=== PATIENT | female | born 2005 | race Caucasian/White ===

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

== ENCOUNTER 2023-04-19 12:04 | Emergency (ER) | payer BC, SELFPAY ==
--- NOTE | 2023-04-19 12:12 | ED.GENADULT ---
HPI - General Adult General Chief complaint: Upper Respiratory Infection Stated complaint: sore throat; headache; fever; Source: patient and RN notes reviewed History of Present Illness HPI narrative: 17-year-old female presents urgent care with complaints of a sore throat x2 days. Patient states she had a fever and chills last night. Reports bilateral ear pain as well. Denies any congestion, vomiting, shortness of breath, or diarrhea. Patient's boyfriend tested positive for strep throat this morning in clinic. Some parts of this dictation were generated by voice recognition software and may contain typographical and/or grammatical inaccuracies. Related Data Allergies Allergy/AdvReac Type Severity Reaction Status Date / Time No Known Allergies Allergy Verified 10/25/22 08:51 Review of Systems Review of Systems: Pertinent positives and pertinent negatives per HPI. [facility] Surgical History Surgical History (Updated 10/25/22 @ 09:10 by Lisa Edwards NP) No history of previous surgery Social History Social History (Updated 10/25/22 @ 08:49 by Lisa Edwards NP) Smoking status: Never smoker Alcohol intake: unknown Substance use type: does not use Living arrangements: with family Gender identity (if verbalized by the patient): Female Comments At the time of my signature, I reviewed and agree with the nursing past medical, surgical, social, and family history. There is no relevant family history pertinent to the patient complaint. Exam Narrative: GENERAL: This is a well-nourished, well-developed patient, in no apparent distress. HEAD: normocephalic, atraumatic. EYES: PERRL. Sclera clear/white. Vision is grossly intact. EARS: External ears normal, auditory canals clear and without drainage, TMs normal without perforation. Hearing grossly intact. NOSE: External nose normal with no obvious nasal discharge, nares without redness, no rhinorrhea. THROAT: Mucous membranes moist, posterior pharynx Erythemic. no exudate noted. NECK: Neck supple, non-tender without lymphadenopathy, masses or thyromegaly. CARDIOVASCULAR: Regular rate and rhythm without murmurs, gallops, or rubs. RESPIRATORY: Clear to auscultation. Breath sounds equal bilaterally. No wheezes, rales, or rhonchi. SKIN: warm, intact with no suspicious lesions or rash, good texture and turgor. NEURO: awake, alert, and oriented to person, place and time. There were no obvious focal neurologic abnormalities. EXTREMITIES: No clubbing, cyanosis, or edema. No joint tenderness, effusion, or edema noted. BACK: Nontender without deformity or crepitance. No flank tenderness. Course Course Level of Care: Express Care Visit Vital Signs Vital signs: Vital Signs Temperature 98.1 F 04/19/23 12:15 Pulse Rate 66 04/19/23 12:15 Respiratory Rate 16 04/19/23 12:15 Blood Pressure 117/66 04/19/23 12:15 Pulse Oximetry 100 04/19/23 12:15 Oxygen Delivery Room Air 04/19/23 12:15 Temperature 98.1 F 04/19/23 12:15 Pulse Rate 66 04/19/23 12:15 Respiratory Rate 16 04/19/23 12:15 Blood Pressure 117/66 04/19/23 12:15 Pulse Oximetry 100 04/19/23 12:15 Oxygen Delivery Room Air 04/19/23 12:15 reviewed Medical Decision Making MDM Narrative Medical decision making narrative: After 24 hours on antibiotics throw tooth brush away and start using a new one. Increase your Vitamin C. Do not share drinks. Take Motrin alternating with Tylenol for pain and/or fever alternating every 4 hours. Increase fluids, avoid caffeine. Take a probiotic daily or eat a low sugar yogurt while taking the antibiotic. Follow up with Primary provider if not getting better this week patient is being treated with antibiotics due to her boyfriend testing positive for strep throat this morning here in clinic. Differential Diagnosis Differential Diagnosis: strep throat, viral illness, URI Vital Signs Vital Signs: Vital Signs
[2023-04-19 12:15] VITALS: BP 117/66; PULSE 66; RESP 16; TEMP 36.7; O2SAT 100
== END 2023-04-19 12:44 | disposition home or self-care (01) ==
PROVIDERS: Emergency Provider Nurse Practitioner Family
DX: J02.9 Acute pharyngitis, unspecified (principal)
CPT/HCPCS: 87081; 87880; 99213; G0463

== ENCOUNTER 2024-08-02 14:13 | Emergency (ER) | payer BC, SELFPAY ==
[2024-08-02 14:40] VITALS: BP 120/76; PULSE 64; RESP 16; TEMP 37.4; O2SAT 99
[2024-08-02 14:42] LABS: EDUAAPPEAR Clear; EDUABILI Negative (Negative); EDUABLOOD 3+ (Negative); EDUACOLOR1 Pink; EDUAGLUCOSE Negative (Negative); EDUAKETONE Negative (Negative); EDUALEUKO 1+ (Negative); EDUANITRATE Negative (Negative); EDUAPH 6.5; EDUAPROTEIN 2+ (Negative); EDUASPGRAVITY 1.025
--- NOTE | 2024-08-02 14:47 | ED.FEMALEGU ---
HPI - Female Genitourinary General Chief complaint: Urogenital-Female Stated complaint: urinary issue Time Seen by Provider: 08/02/24 14:35 Source: patient Mode of arrival: ambulatory Limitations: no limitations History of Present Illness HPI Narrative: 19-year-old female presents with complaint of urgency, frequency, dysuria for 2 days. Afebrile. No abdominal or back pain. All systems reviewed and negative except as noted above. Related Data Allergies Allergy/AdvReac Type Severity Reaction Status Date / Time No Known Allergies Allergy Verified 08/02/24 14:14 Review of Systems Review of Systems: CONSTITUTIONAL: Denies fever, chills, or sweats. EYES: Denies visual changes, redness, or discharge. ENT: Denies rhinorrhea, congestion, sore throat, or otalgia. CARDIOVASCULAR: Denies chest pain, palpitations, or edema. RESPIRATORY: Denies cough or dyspnea. GASTROINTESTINAL: Denies abdominal pain, nausea, vomiting, or diarrhea. GENITOURINARY: Reports dysuria, frequency. Denies hematuria. SKIN: Denies rash or itching. MUSCULOSKELETAL: Denies back pain, joint pain, or myalgia. NEUROLOGIC: Denies headache, numbness, or weakness. PSYCHIATRIC: Denies anxiety or depression. All other systems reviewed are negative, except as documented in HPI. [facility] Surgical History Surgical History (Updated 10/25/22 @ 09:10 by Lisa Edwards NP) No history of previous surgery Social History Social History (Updated 10/25/22 @ 08:49 by Lisa Edwards NP) Smoking status: Never smoker Alcohol intake: unknown Substance use type: does not use Living arrangements: with family Gender identity (if verbalized by the patient): Female Comments At time of signature, agree with nursing past medical, surgical, social and family history. There is no relevant family history pertinent to the presenting complaint. Exam Narrative: GENERAL: This is a well-nourished, well-developed patient, in no apparent distress. HEAD: normocephalic, atraumatic. EYES: PERRL. Sclera clear/white. Vision is grossly intact. EARS: External ears normal NOSE: External nose normal NECK: Neck supple, non-tender without lymphadenopathy, masses or thyromegaly. CARDIOVASCULAR: Regular rate and rhythm without murmurs, gallops, or rubs. RESPIRATORY: Clear to auscultation. Breath sounds equal bilaterally. No wheezes, rales, or rhonchi. SKIN: warm, Dry, intact with no suspicious lesions or rash, good texture and turgor. NEURO: awake, alert, and oriented to person, place and time. There were no obvious focal neurologic abnormalities. EXTREMITIES: No joint tenderness, effusion, or edema noted. Course Course Level of Care: Express Care Visit Vital Signs Vital signs: Vital Signs Temperature 37.4 C 08/02/24 14:40 Pulse Rate 64 08/02/24 14:40 Respiratory Rate 16 08/02/24 14:40 Blood Pressure 120/76 08/02/24 14:40 Pulse Oximetry 99 08/02/24 14:40 Oxygen Delivery Room Air 08/02/24 14:40 Temperature 37.4 C 08/02/24 14:40 Pulse Rate 64 08/02/24 14:40 Respiratory Rate 16 08/02/24 14:40 Blood Pressure 120/76 08/02/24 14:40 Pulse Oximetry 99 08/02/24 14:40 Oxygen Delivery Room Air 08/02/24 14:40 reviewed MDM - Female Genitourinary MDM Narrative Medical decision making narrative: Patient is aware of diagnosis, understands and agrees to treatment plan. Anticipatory guidance given. Patient agrees to follow-up as directed and is aware of reasons to seek care at the emergency department. Portions of this record may have been created with voice recognition software Differential Diagnosis Differential diagnosis: Likely urinary tract infection Lab Data Labs: Lab Results 08/02/24 Range/Units 14:39 POC Urine Color Friona POC Urine Clarity Clear POC Urine pH 6.5 POC Ur Specif [place] 1.025 POC Urine Protein 2+ (Negative) POC Ur Glucose (UA) Negative (Negative) POC Urine K
== END 2024-08-02 14:47 | disposition home or self-care (01) ==
PROVIDERS: Emergency Provider Nurse Practitioner Family
DX: N39.0 Urinary tract infection, site not specified (principal)
CPT/HCPCS: 81003; 87086; 87088; 99213; G0463